=== PATIENT | male | born 1960 | race American Indian/Alaskan Native ===

== ENCOUNTER 2017-09-06 19:24 | Emergency (ER) | payer MEDICAID ==
[~2017-09-06 19:24] MED LIST: ADRENALIN ONE; SODIUM BICARBONATE IV ONE
--- NOTE | 2017-09-06 19:48 | Emergency Department Report ---
ED CPR HPI - General Chief Complaint: Cardiac Arrest/CPR Stated Complaint: CARDIAC ARREST Time Seen by Provider: 09/06/17 19:24 Source: EMS Mode of arrival: Stretcher Limitations: Other - History of Present Illness Initial Comments: 57-year-old male with a past medical history of multiple myeloma and chronic pain presents from [facility] in cardiac arrest. Patient was found unresponsive and pulseless by staff. Down time estimated at 15 minutes. EMS states patient was pulseless, apneic with asystole on a monitor upon their arrival. CPR was initiated. Patient is intubated with 7.0 ET tube and received 2 Amps of epinephrine in route to the hospital without any improvement and rhythm. Accu-Chek was in the 80s. Fixed and dilated pupils reported. He arrives pulseless, apneic, in asystole with CPR in progress ED Review of Systems ROS: Stated complaint: CARDIAC ARREST Other details as noted in HPI Comment: Unobtainable due to pts medical conditions (unresponsive) ED Past Medical Hx - Past Medical History Previous Medical History?: Yes Hx Hypertension: Yes Additional medical history: multiple myloma in relapse. chronic pain - Surgical History Past Surgical History?: Yes Additional Surgical History: left chest port ED Physical Exam - General Limitations: Other - Other Other exam information: General: Unresponsive Head exam: Atraumatic Eyes exam: Pupils fixed and dilated ENT: Orally intubated 7.0 ET tube Neck exam: Normal inspection Respiratory exam: Equal breath sounds with bagging, no breath sounds over the epigastrium, apneic, no spontaneous respirations Cardiovascular: Pulseless, right chest wall port Abdomen: Soft, nondistended Extremity: No deformity, no spontaneous movement, bilateral leg edema Back: Normal Inspection Neurologic: GCS equals 3 Psychiatric: Unresponsive Skin: Warm, dry, intact ED Course - Reevaluation(s) Reevaluation #1: 09/06/17 Resuscitation continued upon arrival to ED. Asystole on a cardiac cath tech. The patient received additional epinephrine and 1 amp of sodium bicarbonate. No change in his rhythm. Patient remains in asystole with fixed and dilated pupils. Further resuscitation efforts discontinued due to poor response to treatment. Time of 19:21 ED Medical Decision Making - Medical Decision Making Resuscitation continued upon arrival to ED. Asystole on a cardiac cath tech. The patient received additional epinephrine and 1 amp of sodium bicarbonate. No change in his rhythm. Patient remains in asystole with fixed and dilated pupils. Further resuscitation efforts discontinued due to poor response to treatment. Time of 19:21 - Differential Diagnosis [place], PE, arrhythmia, electrolyte abnormality, CVA Critical Care Time: Yes Critical care time in (mins) excluding proc time.: 15 Critical care attestation.: If time is entered above; I have spent that time in minutes in the direct care of this critically ill patient, excluding procedure time. ED Disposition Clinical Impression: Cardiopulmonary arrest, Hx of multiple myeloma Disposition: DC-20 Is pt being admited?: No Condition: Stable Time of Disposition: 19:48
[2017-09-06] MEDS ORDERED: NACL BACTERIOSTATIC INFILTRATI ONE (21:51)
[2017-09-06] MEDS ORDERED: ADRENALIN ONE (21:51)
== END 2017-09-07 01:10 ==
LOC: ED 19:24
DX: I46.9 Cardiac arrest, cause unspecified (principal); I10 Essential (primary) hypertension; G89.29 Other chronic pain
CPT/HCPCS: 92950; 99285; J0171